=== PATIENT | female | born 1990 | race Two or more races ===

== ENCOUNTER 2017-08-14 23:30 | Emergency (ER) | payer MEDICAID ==
[~2017-08-14] VITALS: Ht 165.1 cm; Wt 81.6 kg
[2017-08-14 23:37] VITALS: BP 136/88
== END 2017-08-15 01:26 | disposition home or self-care (01) ==
LOC: ER 23:33
DX: R00.2 Palpitations (principal); Z90.49 Acquired absence of other specified parts of digestive tract
CPT/HCPCS: A4606; Z7502; Z7610